=== PATIENT | female | born 1995 | race Hispanic/Latino ===

== ENCOUNTER 2020-04-28 08:44 | Outpatient (CLI) | payer OTHER ==
[2020-04-29 12:08] LABS: SARS-CoV-2 MS2 Positive; SARS-CoV-2 N Gene Negative; SARS-CoV-2 S Gene Negative; SARS-CoV-2 by NAA Not Detected (NotDetected); SARS-CoV-2 orf1ab Negative
== END 2020-04-28 08:45 | disposition home or self-care (01) ==
LOC: LABSCS 08:44
PROVIDERS: ATTEND Family Medicine
DX: Z01.812 Encounter for preprocedural laboratory examination (principal); Z11.59 Encounter for screening for other viral diseases
CPT/HCPCS: 87635; U0003

== ENCOUNTER 2020-05-01 19:15 | Inpatient (IN) | payer MEDICAID, OTHER, SELFPAY ==
[~2020-05-01 19:15] MED LIST: Bupivacaine/Epinephrine 0.25% 30 ML VIAL ONE
[2020-05-01] MEDS ORDERED: Ondansetron PF 4 MG/2 ML Vial IVP PRN (19:40)
[2020-05-01] MEDS ORDERED: Promethazine HCl 25 MG/ML VIAL IM PRN (19:40)
[2020-05-01] MEDS ORDERED: Lidocaine 1% (PF) 30 ML VIAL SC PRN (19:40)
[2020-05-01] MEDS ORDERED: NS / Oxytocin 40 units/1000ml 1,000 ML IV PRN (19:40)
[2020-05-01] MEDS ORDERED: hydrALAZINE 20 MG/ML VIAL SLOW IVP PRN ×2 (19:40)
[2020-05-01 20:20] VITALS: BMI 25.9
[2020-05-01] MEDS ORDERED: NS w/ Oxytocin 10 units 500 ML IV SCH (20:30)
[2020-05-01 20:43] LABS: Hemoglobin 12.8 g/dL (12.0-16.0); Mean Corpuscular HGB CONC 34.5 g/dL (32.0-36.0); Mean Corpuscular Hemoglobin 32.4 pg (27.0-31.0); Mean Platelet Volume 8.4 fL (7.4-10.4); Platelet Count 239 thou/uL (130-400); RBC Distribution Width 11.4 % (11.5-14.5); Red Blood Cell (RBC) Count 3.94 mill/uL (4.20-5.40); White Blood Cell (WBC) Count 9.9 thou/uL (4.8-10.8)
[2020-05-01] MEDS: Misoprostol 100 MCG TAB VAG PRN (20:45)
[2020-05-01 21:21] LABS: Syphilis Antibody Nonreactive (Nonreactive); Syphilis Antibody Index 0.03 S/CO (<1.00 Non-Reactive)
--- NOTE | 2020-05-01 21:54 | PDOC.FPROB ---
FMR OB H&P: HPI - History of Present Illness Chief Complaint: eIOL History of Present Illness: Patient is a 24 year old at 39.5 weeks c/w 9.3 week sono who presents for an eOIL. Patient states she has been having small amounts of yellow discharge throughout her whole , denies vaginal bleeding, gush of fluid. She states baby is very active. Primary Care Physician: Ernesto ALAMO FMR OB H&P: Current - Care : 3 Para: 0020 Gestational age: 39.5 weeks Due date: 05/03/2020 Dating Criteria: 9.3 week sono Course/Complications: UTI in november, resolved - OB Labs Blood type: A RH: positive Antibody Screen: negative HIV: negative RPR: negative HepBsAg: negative Rubella: non-immune Quad screen: unknown Urine drug screen: not done Gonorrhea: negative Chlamydia: negative Pap Smear: [facility] 09/2019 1 hour gtt: 2hr: 72/117/101 GBS: negative H&H: 04/11: 12.4/36 - First Trimester Ultrasound First trimester: @ 9.3 weeks, normal - Anatomy Survey Anatomy survey: normal FMR OB H&P: History - Past Medical History PMH: no medical problems - OB History OB History: , D&C x 1 - TELEPHONE CLERK History TELEPHONE CLERK History: [facility] 09/2019 - Surgical History Sx History: D&C x 1 - Social History Social History: no smoking, alcohol or drugs - Family History Family History: DM, HTN, Hypothyroid FMR OB H&P: Medications - Current Home Medications: Medication Instructions Recorded Confirmed Type Comb No.42/Folic Acid 1 tab PO DAILY 05/01/20 05/01/20 History [Prena1 Chewable Tablet] Allergies/Adverse Reactions: Allergies Allergy/AdvReac Type Severity Reaction Status Date / Time No Known Allergies Allergy Verified 05/01/20 20:11 FMR OB H&P: ROS - Review of Systems General: denies: fever/chills, weight/appetite/sleep changes Eyes: denies: eye pain, vision changes ENT: denies: nasal congestion, rhinorrhea Cardiovascular: denies: chest pain, edema Respiratory: denies: cough, congestion Gastrointestinal: denies: abdominal pain, nausea, vomiting, diarrhea Genitourinary (Female): denies: incontinence, vaginal mass/sore Musculoskeletal: denies: pain, stiffness Neurologic: denies: numbness, syncope, headache Integumentary: denies: itching, rash Breast: denies: lumps, bumps Endocrine: denies: polydipsia, polyuria Hematologic/Lymphatic: denies: prolonged or excessive bleeding Psychological: denies: depression FMR OB H&P: Vital Signs - Maternal Vital signs: Vital Signs - First Documented Temp Pulse Resp BP 97.9 F 85 18 123/64 05/01/20 19:58 05/01/20 19:58 05/01/20 19:58 05/01/20 19:58 - Heart Tones Baseline: 140 Variability: moderate Acceleration: present Deceleration: absent Category: category 1 [place] contractions every: 10 minutes FMR OB H&P: Physical Exam - Physical Exam General: NAD HEENT: normocephalic and atraumatic, PERRLA, EOMI Neck: supple, FROM Breast: symmetric, no palpable masses Heart: RRR, no murmurs/rubs/gallops General: CTAB, no respiratory distress Abdomen: soft, gravid, non-tender Musculoskeletal: normal gait and station, pulses present, FROM in all four extremities Neurological: sensation to pain,touch and proprioception grossly normal, no focal deficit Skin: no rash, good tugor Lymphatic: no unusual bruising or bleeding, no purpura Psychiatric: intact recent and remote memory, good judgement and insight, normal mood and affect - Pelvic Exam SVE: 0/0/-3 Membranes: intact FMR OB H&P: Results - Labs Lab results: Laboratory Results - last 24 hr 05/01/20 05/01/20 05/01/20 20:36 20:36 20:36 WBC 9.9 RBC 3.94 L Hgb 12.8 Hct 37.0 MCV 94.0 MCH 32.4 H MCHC 34.5 RDW 11.4 L Plt Count 239 MPV 8.4 Syphilis IgG/IgM Ab Nonreactive Blood Type A POSITIVE Antibody Screen NEGATIVE 05/01/20 21:16 WBC RBC Hgb Hct MCV MCH MCHC RDW Plt Count MPV Syphilis IgG/IgM Ab Blood Type A POSITIVE Antibody Screen FMR OB H&P: A/P Discussion: Date/Time: 05/01/202151 Patient is a 24 year old at 39.5 weeks c/w 9.3 week sono who presents for an eOIL. Term , eIOL A+, antibody neg GBS negative rubella nonimmune, labs otherwise negative 0/0/-3 @ 2044 FHTs in 140s, moderate variability +accels - decels, cat I, ruby 1x every 10 min - will start 1st cytotech, recheck in 3-4 hours - will continue to monitor strips/vitals Rubella non-immune - will order MMR vaccine post- This H&P was discussed with Dr. Orozco and Dr. Echols who agree with the above documentation and plan. Addendum - Attending - Attending Attestation Date/Time: 05/02/20 1896 I personally evaluated the patient and discussed the management with Dr. Myrick. I agree with the History, Examination, Assessment and Plan documented above with any addition or exceptions noted below. cytotec IOL for unfavorable cervix. MMR PP. Expectant management otherwise.
[2020-05-01] MEDS ORDERED: Carboprost 250 MCG/ML AMP IM PRN (23:55)
[2020-05-01] MEDS ORDERED: Diphenoxylate HCl/Atropine Tablet PO PRN ×2 (23:55)
[2020-05-01] MEDS ORDERED: Butorphanol Tartrate 1 MG/ML VIAL SLOW IVP PRN (23:55)
[2020-05-01] MEDS ORDERED: Methylergonovine 0.2 MG/ML VIAL IM PRN (23:55)
[2020-05-01] MEDS ORDERED: Ibuprofen 800 MG TAB PO PRN (23:55)
[2020-05-01] MEDS ORDERED: Misoprostol 200 MCG TAB PR PRN (23:55)
[2020-05-02 00:07] LABS: HBSAg Index 0.15 S/CO (0-0.99); Hep B Surf Ag Non-Reactive S/CO (NonReactive)
[2020-05-02] MEDS: Misoprostol 100 MCG TAB VAG PRN ×2 (01:18→08:02)
--- NOTE | 2020-05-02 02:34 | PDOC.LDPN ---
Labor & Delivery Progress Note - Subjective Subjective: comfortable, no concerns - Objective Vital signs reviewed and normal: yes General: NAD, resting Uterine fundus: non tender Dilation: 1 Effacement: 25% Station: -3 FHT: category 1 [place] contractions every: 5 minutes - Assessment (1) Elective induction of labor planned Code(s): [id number] - Current Visit: Yes Status: Acute (2) Rubella non-immune status, antepartum Code(s): O99.89 - OTH DISEASES AND CONDITIONS COMPL PREG/CHLDBRTH; Z28.3 - UNDERIMMUNIZATION STATUS Current Visit: Yes Status: Acute Plan: continue plan of care, labor augmentation -: Patient is a 24 year old at 39.6 weeks c/w 9.3 week sono who presents for an eOIL. Term , eIOL A+, antibody neg GBS negative rubella nonimmune, labs otherwise negative 0/0/-3 @ 2045, cytotech #1 given /25/-3 @ 0122 FHTs in 140s, moderate variability +accels - decels, cat I, ruby every 4- 5 minutes - will give 2nd cytotech, recheck in 3-4 hours - will continue to monitor strips/vitals Rubella non-immune - will order MMR vaccine post- This H&P was discussed with Dr. Orozco and Dr. Echols who agree with the above documentation and plan.
[2020-05-02] MEDS ORDERED: Fentanyl 4 mcg/Bup 0.1% Cadd 100 ML ONE ×2 (08:24→17:07)
--- NOTE | 2020-05-02 08:34 | PDOC.LDPN ---
Labor & Delivery Progress Note - Subjective Subjective: vaginal pressure - Objective Vital signs reviewed and normal: yes General: NAD Uterine fundus: non tender SVE: 1.5/50/-2 FHT: category 1, variability present [place] contractions every: 3-4min -: Patient is a 24 year old at 39.6 weeks c/w 9.3 week sono who presents for an eOIL. Term , eIOL - SVE: 1.5/50/-2 @ 0815 - FHTs in 120s/mod/+accel/no decel, ruby every 3-4 minutes - 3rd cytotec given, will recheck in 3-4 hours - will continue to monitor strips/vitals - pt requested epidural to be placed now Rubella non-immune - will order MMR vaccine post- This H&P was discussed with Dr. Vicente and Dr. Shoemaker who agree with the above documentation and plan. Addendum - Attending - Attending Attestation Date/Time: 05/02/20 5128 I personally evaluated the patient and discussed the management with the team. I agree with the History, Examination, Assessment and Plan documented above with any addition or exceptions noted below.
[2020-05-02] MEDS ORDERED: EPHEDRINE 25 MG/5 ML SYRINGE SLOW IVP PRN (09:01)
[2020-05-02] MEDS ORDERED: Naloxone HCl 0.4 mg/ml Vial IVP PRN ×2 (09:01)
[2020-05-02] MEDS ORDERED: Ondansetron PF 4 MG/2 ML Vial IVP PRN (09:01)
[2020-05-02] MEDS ORDERED: diphenhydrAMINE 50 MG/ML VIAL IVP PRN (09:01)
[2020-05-02] MEDS ORDERED: Lactated Ringer's 500 ML IV PRN (09:01)
[2020-05-02] MEDS ORDERED: Acetaminophen 325 MG TAB PO PRN (09:01)
[2020-05-02] MEDS ORDERED: Promethazine HCl 25 MG/ML VIAL IM PRN (09:01)
[2020-05-02] MEDS: NS w/ Oxytocin 10 units 500 ML IV SCH (09:02)
[2020-05-02] MEDS: Lactated Ringer's 1,000 ML IV SCH ×3 (09:03→13:45)
[2020-05-02] MEDS ORDERED: Communication Order-Pharmacy FS SCH (09:15)
[2020-05-02] MEDS ORDERED: Fentanyl 4 mcg/Bupivacaine 0.1% Cassette 100 ML EPIDURAL SCH (09:15)
--- NOTE | 2020-05-02 11:50 | PDOC.LDPN ---
Labor & Delivery Progress Note - Subjective Subjective: comfortable - Objective Vital signs reviewed and normal: yes General: NAD Uterine fundus: non tender SVE: /-2 FHT: category 2, late decelerations, variability present [place] contractions every: 2-3min Procedures: epidural placed 0900 Resuscitative measures: maternal IV fluids, maternal position change -: Patient is a 24 year old at 39.6 weeks c/w 9.3 week sono who presents for an eOIL. Term , eIOL - SVE: /-2 @ 1130 - FHTs Cat 2: 120s/mod/+accel/late decels, ruby every 3-4 minutes - epidural placed 0900, given 1L bolus LR - late decels started around 1030, resolved with position change - additional 1L bolus LR started - will continue to monitor strips/vitals Rubella non-immune - will order MMR vaccine post- Addendum - Attending - Attending Attestation Date/Time: 05/02/20 1587 I personally evaluated the patient and discussed the management with the team. I agree with the History, Examination, Assessment and Plan documented above with any addition or exceptions noted below. I was called for category 2 FHT's s/p epidural. By the time I had arrived the strip was category 1, mod maribel, + accels, no decels, ctx q3-4m. Cat 2 had resolved with position changes and IVFB. If tachysystole or hypotension will treat appropriately. Continue to monitor. Begin pitocin when ctx & FHT allow.
--- NOTE | 2020-05-02 15:16 | PDOC.LDPN ---
Labor & Delivery Progress Note - Subjective Subjective: comfortable - Objective Vital signs reviewed and normal: yes General: NAD Uterine fundus: non tender SVE: 3.5/50/-1 FHT: category 1, variability present [place] contractions every: 2-4min Resuscitative measures: maternal position change -: Patient is a 24 year old at 39.6 weeks c/w 9.3 week sono who presents for an eOIL. Term , eIOL - SVE: 3.5/50/-1 @ 1500 - FHTs Cat 1: 120s/mod/no accels/no decels, ruby every 2-4 minutes - nurse reported a few late decels after increasing pit around 1400, resolved after maternal repositioning and fluid bolus - also had a period of minimal variability, D50 was added and variability increased - will continue to monitor FHTs and adjust pit as tolerated Rubella non-immune - will order MMR vaccine post- Addendum - Attending - Attending Attestation Date/Time: 05/02/20 7803 I personally evaluated the patient and discussed the management with Dr. Hale. I agree with the History, Examination, Assessment and Plan documented above with any addition or exceptions noted below. I was called again for FHT's. Several lates which resolved and most recently 2 when pitocin was increased that were more significant. Baby has descended on last check but no sig change in dilation or effacement. Lates resolved with repositioning. We discussed possibility of and patient and significant other are understanding. Will continue to monitor closely.
--- NOTE | 2020-05-02 15:55 | PDOC.BPN ---
- Brief Progress Note SROM. Exam unchanged, no palp cord. +accel to FSS. Continue to monitor.
--- NOTE | 2020-05-02 17:11 | PDOC.LDPN ---
Labor & Delivery Progress Note - Subjective Subjective: comfortable - Objective Vital signs reviewed and normal: yes General: NAD FHT: category 1 (mod maribel, no accels, no decels; previous period of minimal variability, resolved) [place] contractions every: q5 Plan: other (Most recently category one. Will restart pitocin to continue with induction. If recurrence of category II FHT's likely proceed with . Patient and updated at bedside.)
--- NOTE | 2020-05-02 18:21 | PDOC.LDPN ---
Labor & Delivery Progress Note - Subjective Subjective: comfortable, vaginal pressure - Objective Vital signs reviewed and normal: yes General: NAD, breathing through contractions Uterine fundus: non tender Dilation: 9 Effacement: 100% Station: 0 FHT: category 1, category 2 (occasional varriable decel, periods of minimal variability ) [place] contractions every: 2-3 minutes Other exam findings: bloody show - Assessment (1) Elective induction of labor planned Code(s): [id number] - Current Visit: Yes Status: Acute (2) Rubella non-immune status, antepartum Code(s): O99.89 - OTH DISEASES AND CONDITIONS COMPL PREG/CHLDBRTH; Z28.3 - UNDERIMMUNIZATION STATUS Current Visit: Yes Status: Acute Plan: continue plan of care -: Patient is a 24 year old at 39.6 weeks c/w 9.3 week sono who presents for an eOIL. Term , eIOL - SVE: /0 @ 1815 - FHTs Cat 1: 120s/mod/no accels/no decels, ruby every 2-4 minutes - Previous periods of cat II, resolved after maternal positioning and fluids - Earlier period of minimal variability resolved with D5 - will continue to monitor FHTs and adjust pit as tolerated Rubella non-immune - will order MMR vaccine post- I have discussed this case with Dr. Echols.
--- NOTE | 2020-05-02 20:05 | PDOC.LDPN ---
Labor & Delivery Progress Note - Subjective Subjective: comfortable, vaginal pressure - Objective Vital signs reviewed and normal: yes General: NAD Uterine fundus: non tender SVE: 9.5 Dilation: 9 Effacement: 100% Station: 0 FHT: category 1 [place] contractions every: 2-4 minutes - Assessment (1) Elective induction of labor planned Code(s): [id number] - Current Visit: Yes Status: Acute (2) Rubella non-immune status, antepartum Code(s): O99.89 - OTH DISEASES AND CONDITIONS COMPL PREG/CHLDBRTH; Z28.3 - UNDERIMMUNIZATION STATUS Current Visit: Yes Status: Acute -: Patient is a 24 year old at 39.6 weeks c/w 9.3 week sono who presents for an eOIL. Term , eIOL - SVE: 9.5/100/0 @ 1910 - FHTs Cat 1: 120s/mod/no accels/no decels, ruby every 2-4 minutes - will continue to monitor FHTs and adjust pit as tolerated Rubella non-immune - will order MMR vaccine post- I have discussed this case with Dr. Echols.
--- NOTE | 2020-05-02 21:28 | PDOC.OPDEL ---
OB Operative/Delivery Note Delivery Dr/Surgeon: Dr. Myrick, Dr. Orozco, Dr. Echols Pre-Delivery Diagnosis: elective induction Procedure/Post Delivery Dx: spontaneous vaginal delivery Weeks gestation: 39 (6 days) Anesthesia: epidural - Additional Findings/Plan Placenta delivered: spontaneous Repaired Obstetrical Laceration: 1st degree Estimated blood loss: 300 Compilations/Other Findings: Delivering Physician: Dr. Myrick, Dr. Orozco Attending: Jaison Echols MD Procedure: Spontaneous Vaginal Delivery Anesthesia: epidural QBL: 300 ml Pre-op Diagnosis: 1. Term intrauterine in labor 2. Rubella non-immune 3. History SAB x2 Post-op Diagnosis: 1. Term intrauterine , delivered 2. same as above 3. same as above Indications: A 24 y/o female presents to L&D for elective induction of labor Delivery Note: This is 24 yo F @ 39.6 weeks who delivered a viable F infant at 2030. Following an uneventful antepartum course, a vigorous F was delivered in the OA position. Anterior Shoulder and then remainder of the body delivered. No nuchal cord. The head was held down and mouth and nares were bulb suctioned. Cord clamped and cut and cord blood collected. Cord segment was also collected for arterial and venous blood gas analysis. Placenta delivered intact with a 3 vessel cord noted. Fundal massage was performed and the fundus was firm. The cervix and vagina were inspected and a first degree perineal laceration was noted and repaired with 3-0 chromic in the usual fashion with good approximation and hemostasis. went to nursery in good condition for routine care. Apgars were 8/9 at 1 & 5 minutes, respectively. Patient tolerated delivery well and went to after routine recovery/care. ATTENDING ADDENDUM: I was present for the entire delivery and laceration repair and agree with the above documentation. Patient had intermittent category 2 FHT throughout the afternoon and leading up to the delivery. began to experience variable and early decelerations into the 80s and 90s immediately before and during the 2nd stage of labor but would recover after each. The did have one prolonged decel into the 80s approximately 5 min before delivery. cord gas unremarkable and infant did well. Routine care for mom and baby. Post delivery plan: routine recovery
[2020-05-02 21:44] LABS: Actual Bicarbonate (HCO3a) 22.9 mEq/L (22-28); Base Excess (BEa) -3.9 mEq/L (-2.0 to +3.0)
[2020-05-03] MEDS: NS w/ Oxytocin 10 units 500 ML IV SCH ×2 (01:18→21:45)
[2020-05-03] MEDS: Lactated Ringer's 1,000 ML IV SCH (01:18)
[2020-05-03] MEDS ORDERED: Milk Of Magnesia 30 ML UDCUP PO PRN (01:19)
[2020-05-03] MEDS ORDERED: Bisacodyl 10 MG SUPP PR PRN (01:19)
[2020-05-03] MEDS ORDERED: Lanolin Ointment 7 GM TUBE TOP PRN (01:19)
[2020-05-03] MEDS ORDERED: Benzocaine-Menthol 82.5 ML CAN TOP PRN (01:19)
[2020-05-03] MEDS ORDERED: Ibuprofen 800 MG TAB PO SCH (01:45)
--- NOTE | 2020-05-03 06:20 | PDOC.OBPPN ---
FMR OB PN: Subj - Interval History Hospital Day: 3 Day: 1 Chief Complaint: none Indentification: Interval History: NS WNLs. Tolerating PO, voiding, ambulating and passing gas. FMR OB PN: Obj - Maternal Vital signs: BP: 118/65 HR: 72 RR: 18 Tmax: 98.5F Wt: 64 kg - Urine output I&O: 05/01/20 05/02/20 05/03/20 06:59 06:59 06:59 Output Total 356 Balance -356 - Lochia Lochia: normal - Pain Management Pain scale: 0 Intervention: oral medication FMR OB PN: Exam - Physical Exam General: NAD, awake, alert and oriented HEENT: normocephalic and atraumatic, grossly normal vision, grossly normal hearing Neck: supple, FROM Heart: RRR, normal S1/S2 General: CTAB, no respiratory distress Abdomen: soft, fundus(cm) (firm at umbilicus), bowel sound present Musculoskeletal: normal gait and station, FROM in all four extremities, other ( negative prieto's B/L) Neurological: cranial nerves II through XII intact, sensation to pain,touch and proprioception grossly normal, no focal deficit Skin: no rash, good tugor : appropriately tender Lymphatic: no unusual bruising or bleeding, no purpura Psychiatric: intact recent and remote memory, good judgement and insight, normal mood and affect - Pelvic Exam : perineal incision/laceration healing well, sutures intact, no discharge, normal lochia, other (mild labial edema noted) FMR OB PN: Data - Labs Lab results: Laboratory Results - last 24 hr 05/02/20 20:51 Bicarbonate Actual 22.9 ABG Base Excess -3.9 L Cord ABG pH 7.298 Cord ABG PCO2 (Robert) 47.8 FMR OB PN: A/P - Problem List (1) care following vaginal delivery Current Visit: Yes Status: Acute Code(s): Z39.2 - ENCOUNTER FOR ROUTINE FOLLOW-UP (2) Rubella non-immune status, antepartum Current Visit: Yes Status: Acute Code(s): O99.89 - OTH DISEASES AND CONDITIONS COMPL PREG/CHLDBRTH; Z28.3 - UNDERIMMUNIZATION STATUS Disposition: 24YO who is PP day #1 s/p @ 39.6 WGA. PP day #1 s/p - VS WNLs. Tolerating PO, ambulating & voiding normally, pain well controlled. Passing gas. Normal lochia. which is going well. Continue routine PP care. Rubella non-immune - Will give MMR vaccine prior to d/c. Discussion: Date/Time: 05/03/20 0667 This H&P was discussed with Dr. Shoemaker who agrees with the above documentation and plan. Addendum - Attending - Attending Attestation Date/Time: 05/03/20 1051 I personally evaluated the patient and discussed the management with Dr. Orozco. I agree with the History, Examination, Assessment and Plan documented above with any addition or exceptions noted below.
[2020-05-03] MEDS ORDERED: Measles/Mumps/Rubella 10 MCG/0.5 ML VIAL SC ONE (09:00)
[2020-05-03] MEDS: Ferrous Sulfate 325 MG TAB PO SCH ×2 (09:43→21:45)
[2020-05-03] MEDS: Docusate Calcium (SURFAK) 240 MG CAP PO SCH ×2 (09:43→21:39)
[2020-05-03] MEDS: Prenatal Vitamin 1 TAB PO SCH (09:43)
[2020-05-03] MEDS: Ibuprofen 800 MG TAB PO SCH ×2 (14:11→21:39)
[2020-05-04] MEDS: Ibuprofen 800 MG TAB PO SCH (05:44)
--- NOTE | 2020-05-04 07:01 | PDOC.OBPPN ---
FMR OB PN: Subj - Interval History Hospital Day: 4 Day: 2 Chief Complaint: none Indentification: who is PP day #2 s/p term . Interval History: Patient continues to do well. VS WNLs overnight & pain controlled. FMR OB PN: Obj - Maternal Vital signs: BP: 111/75 HR: 83 RR: 12 Tmax: 98.4F Pox: 100% on RA Wt: 64 kg - Urine output I&O: 05/02/20 05/03/20 05/04/20 06:59 06:59 06:59 Output Total 356 120 Balance -356 -120 - Pain Management Pain scale: 0 Intervention: oral medication FMR OB PN: Exam - Physical Exam General: NAD, awake, alert and oriented HEENT: MMM, grossly normal vision, grossly normal hearing Neck: supple, FROM Breast: symmetric Heart: RRR, normal S1/S2, no edema General: CTAB, no respiratory distress Abdomen: soft, fundus(cm) (firm just above umbilicus) Musculoskeletal: normal gait and station, FROM in all four extremities Neurological: cranial nerves II through XII intact, sensation to pain,touch and proprioception grossly normal, no focal deficit Skin: no rash, good tugor Lymphatic: no unusual bruising or bleeding, no purpura, no petechia Psychiatric: intact recent and remote memory, good judgement and insight, normal mood and affect - Pelvic Exam : perineal incision/laceration healing well, sutures intact, no discharge, no edema, normal lochia FMR OB PN: A/P - Problem List (1) care following vaginal delivery Current Visit: Yes Status: Acute Code(s): Z39.2 - ENCOUNTER FOR ROUTINE FOLLOW-UP (2) Rubella non-immune status, antepartum Current Visit: Yes Status: Acute Code(s): O99.89 - OTH DISEASES AND CONDITIONS COMPL PREG/CHLDBRTH; Z28.3 - UNDERIMMUNIZATION STATUS Disposition: 24YO who is PP day #2 s/p @ 39.6 WGA. PP day #2 s/p - VS remain WNLs. Tolerating PO, ambulating & voiding normally, pain well controlled. Passing gas. Normal lochia. which is still going well. Seen by yesterday. Continue routine PP care. Rubella non-immune - s/p MMR vaccine yesterday AM. Dispo: Stable for d/c home or to B&B today pending 's clinical course. Discussion: Date/Time: 05/04/2006 This H&P was discussed with Dr. Shoemaker who agrees with the above documentation and plan. Addendum - Attending - Attending Attestation Date/Time: 05/04/20 1226 I personally evaluated the patient and discussed the management with Dr. Orozco. I agree with the History, Examination, Assessment and Plan documented above with any addition or exceptions noted below. Plan for home today.
[2020-05-04 08:15] VITALS: BP 132/58; TEMP 98.2
[2020-05-04] MEDS: Docusate Calcium (SURFAK) 240 MG CAP PO SCH (09:28)
[2020-05-04] MEDS: Prenatal Vitamin 1 TAB PO SCH (09:28)
[2020-05-04] MEDS: Ferrous Sulfate 325 MG TAB PO SCH (09:28)
== END 2020-05-04 13:30 | disposition home or self-care (01) | DRG 807 ==
LOC: L&D 19:32 → 3SW 05-03 00:25
PROVIDERS: ADMIT Family Medicine; ATTEND Family Medicine
PROC: 10E0XZZ Delivery of Products of Conception, External Approach (ICD-10-PCS; principal; 2020-05-01)
PROC: 0HQ9XZZ Repair Perineum Skin, External Approach (ICD-10-PCS; 2020-05-01)
DX: O70.0 First degree perineal laceration during delivery (principal); Z37.0 Single live birth; Z3A.39 39 weeks gestation of pregnancy
CPT/HCPCS: 36415; 51702; 82805; 85027; 86780; 86850; 86900; 86901; 87340; J0595; J1200; J2590